=== PATIENT | female | born 1970 | race Caucasian/White ===

== ENCOUNTER → 2017-01-02 | Outpatient (CLI) | payer OTHER | END | disposition home or self-care (01) | LOC: C.PAPS 10:15 | PROVIDERS: ATTEND Obstetrics & Gynecology | DX: Z12.4 Encounter for screening for malignant neoplasm of cervix (principal) ==

== ENCOUNTER → 2017-11-22 | Outpatient (CLI) | payer OTHER ==
--- NOTE | 2017-11-23 13:46 | MAMMOGRAPHY REPORT ---
BILATERAL DIGITAL SCREENING MAMMOGRAM TOMOSYNTHESIS WITH CAD: 11/22/2017 CLINICAL HISTORY: Routine screening. Patient has no complaints. TECHNIQUE: Breast tomosynthesis in addition to standard 2D mammography was performed. Current study was also evaluated with a Computer Aided Detection (CAD) system. COMPARISON: Comparison is made to exams dated: 09/09/2016 mammogram, 07/10/2015 mammogram, 04/17/2014 mammogram, 01/25/2013 mammogram, 10/19/2011 mammogram, and 09/03/2010 mammogram - [facility]. BREAST COMPOSITION: The tissue of both breasts is heterogeneously dense, which may obscure small mas ses. FINDINGS: There is evidence of prior bilateral breast surgery. No new suspicious mass, architectural distortion or cluster of microcalcifications is seen. IMPRESSION: ACR BI-RADS CATEGORY 1: NEGATIVE There is no mammographic evidence of malignancy. A 1 year screening mammogram is recommended. The pa tient will receive written notification of the results. Approximately 10% of breast cancers are not detected with mammography. A negative mammographic report should not delay biopsy if a clinically suggestive mass is present. Yudy Roth M.D. ay/:11/22/2017 15:26:44 [employer]: Tammi Kebede, [facility] letter sent: Normal 1/2 BI-RADS Code: ACR BI-RADS Category 1: Negative
== END | disposition home or self-care (01) ==
LOC: C.MAMM 14:31
PROVIDERS: ATTEND Obstetrics & Gynecology
DX: Z12.31 Encounter for screening mammogram for malignant neoplasm of breast (principal)

== ENCOUNTER → 2017-11-30 | Outpatient (CLI) | payer OTHER ==
[2017-11-30 11:14] LABS: ALBUMIN 3.5 gm/dl (3.4-5.0); ALT/SGPT 62 U/L (12-78); AST/SGOT 39 U/L (15-37); BLOOD UREA NITROGEN 19 mg/dl (7-18); CALCIUM 8.6 mg/dl (8.5-10.1); CARBON DIOXIDE 28 mmol/L (21-32); CREATININE 0.86 mg/dl (0.60-1.20); GLUCOSE 77 mg/dl (70-99); SODIUM 136 mmol/L (136-145)
[2017-11-30 11:25] LABS: ALKALINE PHOSPHATASE 24 U/L (45-117); CHOLESTEROL 192 mg/dl (0-200); LDL CHOLESTEROL CALCULATED 108 mg/dl; TOTAL PROTEIN 7.1 gm/dl (6.4-8.2); TRANSFERRIN 271 mg/dl (200-360)
== END | disposition home or self-care (01) ==
LOC: C.LAB 07:22
DX: E78.5 Hyperlipidemia, unspecified (principal); L40.9 Psoriasis, unspecified; R03.0 Elevated blood-pressure reading, without diagnosis of hypertension; E66.9 Obesity, unspecified; E28.319 Asymptomatic premature menopause

== ENCOUNTER → 2017-12-15 | Outpatient (CLI) | payer OTHER ==
--- NOTE | 2017-12-15 10:56 | DIAGNOSTIC IMAGING REPORT ---
PELVIC COMPLETE NON OB CLINICAL HISTORY: AB BLOATING PAIN. NAUSEA. COMPARISON STUDY: None FINDINGS: The uterus measured 9.5 cm. Several partially calcified uterine fibroids. These measure 5.0 and 1.5 cm at maximum respectively.. The endometrial stripe measured 4 mm. The right ovary measured 3.7 cm maximum dimension. Normal vascular flow. Several small follicular cyst. 3 x 2.5 cm cyst.. The left ovary measured 2.9 cm maximum dimension. Normal vascular flow. Several small follicular cysts.. There is no ultrasonographic evidence of ovarian torsion. It should be noted that ovarian torsion can be present with normal Doppler ultrasonographic findings. There was no evidence of pathologic free pelvic fluid. IMPRESSION: 1. 2 uterine fibroids dimension as noted. 2. Small bilateral ovarian follicular cysts. 3. 3 cm right ovarian cyst. The above report was generated using voice recognition software. It may contain grammatical, syntax or spelling errors. Electronically signed by: Delfino Celis M.D. 12/15/2017 10:54 AM Dictated Date/Time: 12/15/2017 10:52 AM
--- NOTE | 2017-12-15 11:01 | DIAGNOSTIC IMAGING REPORT ---
ABDOMEN COMPLETE (US) CLINICAL HISTORY: Abdominal bloating COMPARISON STUDY: No previous studies for comparison. FINDINGS: There is a 3.4 cm echogenic mass within the right lobe of the liver. This is consistent with although not specific for a hepatic hemangioma. The gallbladder appears sonographically normal. The pancreas appears sonographically normal. There is no ductal dilatation. The common bile duct measures 6 mm. No splenic masses are visualized. The right kidney measures 11.1 cm in length. The left kidney measures 11.6 cm in length. There are no solid renal masses. There is no hydronephrosis. There is no evidence of abdominal aortic dilatation. The IVC appears patent. IMPRESSION: 3.4 cm echogenic mass within the right lobe of the liver. The lesion is consistent with although not specific for a hepatic hemangioma. If further workup is desired, an MRI of the liver would be considered the test of choice. Electronically signed by: Deep Browne M.D. 12/15/2017 11:00 AM Dictated Date/Time: 12/15/2017 10:52 AM
== END | disposition home or self-care (01) ==
LOC: C.ULTR 09:21
DX: R14.0 Abdominal distension (gaseous) (principal); R16.0 Hepatomegaly, not elsewhere classified; D25.9 Leiomyoma of uterus, unspecified; N83.01 Follicular cyst of right ovary; N83.02 Follicular cyst of left ovary

== ENCOUNTER → 2018-01-03 | Outpatient (CLI) | payer OTHER ==
--- NOTE | 2018-01-03 14:30 | DIAGNOSTIC IMAGING REPORT ---
NUCLEAR GASTRIC EMPTYING STUDY: CLINICAL HISTORY: ABD BLOATING AND DISCOMFORT COMPARISON STUDY: None TECHNIQUE: Following the oral administration of 1 mCi of technetium 99m sulfur colloid in egg sandwich and 8 ounces of water, static abdominal images are performed anteriorly and posteriorly at 0 minutes, 1 hour, 2 hours, and 4 hour time intervals. Gastric emptying was calculated utilizing the geometric mean method. FINDINGS: There is approximately 77 % gastric activity remaining at the 1 hour time interval, 38 % at the 2 hour time interval (normal is less than 60%), and 1 % remaining at the 4 hour time interval (normal is less than 10%). These findings are consistent with a normal study IMPRESSION: Findings are consistent with a normal study Electronically signed by: Deep Browne M.D. 01/03/2018 2:29 PM Dictated Date/Time: 01/03/2018 2:28 PM
== END | disposition home or self-care (01) ==
LOC: C.NUCL 09:02
DX: R10.9 Unspecified abdominal pain (principal); R14.0 Abdominal distension (gaseous)

== ENCOUNTER → 2018-01-22 | Outpatient (CLI) | payer OTHER | END | disposition home or self-care (01) | LOC: C.PAPS 17:16 | PROVIDERS: ATTEND Obstetrics & Gynecology | DX: Z12.4 Encounter for screening for malignant neoplasm of cervix (principal); Z97.5 Presence of (intrauterine) contraceptive device ==

== ENCOUNTER → 2018-03-09 | Outpatient (CLI) | payer OTHER | END | disposition home or self-care (01) | LOC: C.LABSPEC 14:21 | PROVIDERS: ATTEND Obstetrics & Gynecology | DX: Z30.433 Encounter for removal and reinsertion of intrauterine contraceptive device (principal) ==

== ENCOUNTER → 2018-03-26 | Outpatient (CLI) | payer OTHER ==
--- NOTE | 2018-03-26 07:41 | DIAGNOSTIC IMAGING REPORT ---
(LIVER) ABDOMEN LIMITED HISTORY: 47 years-old Female LIVER LESION F/U follow-up study to assess liver lesion COMPARISON: Abdominal ultrasound 12/05/2017 TECHNIQUE: Multiple real-time sonographic images of the abdominal right upper quadrant were obtained assessing grayscale appearance and color flow FINDINGS: The visualized pancreas is unremarkable with distal body and tail obscured by bowel gas. The gallbladder is within normal limits without shadowing cholelithiasis, gallbladder wall thickening or pericholecystic fluid collections. Common bile duct is within the upper limits of normal measuring 6 mm. The imaged right kidney is within normal limits without hydronephrosis. No intrahepatic biliary ductal dilation. The liver measures up to 16 cm in length. There is an echogenic homogeneous circumscribed mass of the posterior right hepatic lobe measuring 2.8 x 2.9 x 2.5 cm, previously measuring up to 3.4 cm on comparison study. No additional hepatic lesions are seen. IMPRESSION: 1. Unchanged appearance of the echogenic mass of the posterior right hepatic lobe measuring up to 2.9 cm, possibly reflecting a hepatic hemangioma. 2. No sonographic evidence of cholelithiasis or acute cholecystitis. The above report was generated using voice recognition software. It may contain grammatical, syntax or spelling errors. Electronically signed by: Rene Godinez M.D. 03/26/2018 7:40 AM Dictated Date/Time: 03/26/2018 7:32 AM
== END | disposition home or self-care (01) ==
LOC: C.ULTR 06:58
DX: R16.0 Hepatomegaly, not elsewhere classified (principal)